=== PATIENT | female | born 1985 | race Caucasian/White ===

== ENCOUNTER 2020-03-24 15:56 | Emergency (ER) | payer MEDICAID ==
[~2020-03-24] VITALS: Ht 152.4 cm; Wt 43.1 kg
[2020-03-24 16:40] VITALS: BP 125/73
--- NOTE | 2020-03-24 16:40 | NUR ---
TO [facility]ENT AMBULATORY
[2020-03-24] MEDS ORDERED: KETOROLAC 30 MG/ML VIAL IVP ONE (17:40)
[2020-03-24 18:41] LABS: BASOPHILS % (AUTO) 0.3 % (0.0-2.0); EOSINOPHILS % (AUTO) 0.1 % (0.0-4.0); HEMOGLOBIN 15.3 g/dL (12.0-16.0); LYMPHOCYTES # (AUTO) 0.8 K/uL (2.5-16.5); LYMPHOCYTES % (AUTO) 18.2 % (20.5-51.1); MEAN CORPUSCULAR HEMOGLOBIN 30 pg (27-31); MEAN CORPUSCULAR HGB CONC 34 g/dL (33-37); MEAN CORPUSCULAR VOLUME 88.6 fL (80-94); MONOCYTES # (AUTO) 0.7 K/uL (0.8-1.0); MONOCYTES % (AUTO) 15.6 % (1.7-9.3); NEUTROPHILS % (AUTO) 65.8 % (42.2-75.2); PLATELET COUNT (AUTO) 185 K/uL (140-450); RED BLOOD CELL COUNT(AUTO) 5.09 MIL/uL (4.20-5.40); RED CELL DISTRIBUTION WIDTH 13.2 % (11.6-13.7); WHITE BLOOD COUNT (AUTO) 4.5 K/uL (4.8-10.8)
[2020-03-24 19:00] LABS: ALBUMIN 3.9 g/dL (3.4-5.0); ANION GAP 12.2 (8-16); CARBON DIOXIDE 26.7 mmol/L (21-32); CREATININE 0.6 mg/dL (0.6-1.3); POTASSIUM 3.9 mmol/L (3.5-5.1); TOTAL BILIRUBIN 0.2 mg/dL (0.0-1.0)
[2020-03-24] MEDS ORDERED: NACL 0.9% 1,000 ML IV ONE (19:30)
[2020-03-24] MEDS ORDERED: cefTRIAXone 1,000 MG VIAL ONE (20:34)
[2020-03-24] MEDS ORDERED: LIDOCAINE MPF 1% 5 ML ONE (20:34)
[2020-03-24] MEDS ORDERED: cefTRIAXone 1,000 MG in LIDOCAINE MPF 1% 2.1 ML IM ONE (20:35)
--- NOTE | 2020-03-24 20:43 | NUR ---
PT REFUSED IM ROCEPHINE AX - ERMD MADE AWARE.
[2020-03-24 20:50] VITALS: BP 122/75
--- NOTE | 2020-03-24 20:50 | NUR ---
Patient discharged with v/s stable. Written and verbal after care instructions given and explained. Patient alert, oriented and verbalized understanding of instructions. Ambulatory with steady gait. All questions addressed prior to discharge. ID band removed. Patient advised to follow up with PMD. Rx of AUGMENTIN & IBUPROFEN given. Patient educated on indication of medication including possible reaction and side effects. Opportunity to ask questions provided and answered.
== END 2020-03-24 20:50 | disposition home or self-care (01) ==
LOC: MED 15:56
DX: H92.03 Otalgia, bilateral (principal); R51.9 Headache, unspecified; G47.00 Insomnia, unspecified
CPT/HCPCS: 36415; 70487; 80053; 84702; 85025; 96374; 99285; J0696; J1885; J2001